=== PATIENT | female | born 1950 | race African-American/Black ===

== ENCOUNTER 2017-10-21 20:26 | Emergency (ER) | payer MEDICARE, OTHER ==
[2017-10-21] MEDS ORDERED: Ondansetron HCl/PF 4 MG/2 ML Vial ONE (21:07)
[2017-10-21] MEDS ORDERED: Sodium Chloride 0.9% 1,000 ML ONE (21:07)
[2017-10-21 21:22] LABS: Bilirubin Negative (Negative); Blood, Urine Negative (Negative); Clarity Clear (Clear); Glucose, Urine (Dipstick) Negative (Negative); Leukocyte Moderate (Negative); Nitrite Negative (Negative); Protein, Urine (Dipstick) 30 mg/dL (Neg-Trace); Urobilinogen 0.2 mg/dL (0.2-1.0); pH, Urine 6.5 (5.0-9.0)
[2017-10-21 21:26] LABS: ALT (SGPT) 7 U/L (8-55); AST (SGOT) 19 U/L (5-34); Albumin 2.9 g/dL (3.4-4.8); Alkaline Phosphatase 72 U/L (40-150); Anion Gap 15 mmol/L (10-20); BUN (Urea Nitrogen) 9 mg/dL (9.8-20.1); Bilirubin, Total 0.2 mg/dL (0.2-1.2); Calc. Creatinine Clearance 0 mL/min (70-130); Calcium 8.6 mg/dL (7.8-10.44); Carbon Dioxide 25 mmol/L (23-31); Chloride 96 mmol/L (98-107); Estimated GFR-MDRD 79; Globulin 4.2 g/dL (2.4-3.5); Glucose 104 mg/dL (80-115); Potassium 3.4 mmol/L (3.5-5.1); Protein, Total 7.1 g/dL (6.0-8.3); Sodium 133 mmol/L (136-145)
[2017-10-21 21:27] LABS: Magnesium 1.9 mg/dL (1.6-2.6)
[2017-10-21 21:28] LABS: CKMB 0.5 ng/mL (0-6.6); Troponin I Less than 0.010 ng/mL (< 0.028)
[2017-10-21 21:38] LABS: Band 6 % (5-11); Hemoglobin 3.8 g/dL (12.0-16.0); Hypochromia MARKED = >30 cells (100X) (0-5/hpf); Lymphocytes 43 % (21-51); MDiff Complete? YES; Mean Corpuscular HGB CONC 26.3 g/dL (32.0-36.0); Mean Corpuscular Hemoglobin 14.1 pg (27.0-31.0); Mean Corpuscular Volume 53.7 fl (81.0-99.0); Microcytosis MARKED = >30 cells (100X) (0-5/hpf); Monocytes 2 % (0-10); Neutrophil 49 % (42-75); PLT Morphology Comment Appears Adequate; Platelet Count 461 thou/uL (130-400); Poikilocytosis SLIGHT = 6-15 cells (100X) (0-5/hpf); RBC Distribution Width 14.8 % (11.5-14.5); Red Blood Cell (RBC) Count 2.69 mill/uL (4.20-5.40); White Blood Cell (WBC) Count 15.4 thou/uL (4.8-10.8)
[2017-10-21 21:40] LABS: Bacteria/HPF None Seen HPF (None Seen); RBC/HPF None Seen HPF (0-3); Squamous Epithelial 0-3 HPF (0-3)
--- NOTE | 2017-10-21 21:48 | RAD ---
AP VIEW OF THE CHEST: INDICATIONS: Nausea, weakness, and fever with intermittent abdominal pains. COMPARISON: None. IMPRESSION: No acute abnormality. COMMENTS: No comparisons are available. There are vascular calcifications involving the aortic arch. The lung s are clear. No pleural effusion or pneumothorax is evident. No acute osseous abnormality is eviden t. POS: [facility]
--- NOTE | 2017-10-21 22:24 | CT ---
CT OF THE BRAIN WITHOUT CONTRAST: INDICATIONS: Nausea, weakness, fever, and intermittent abdominal pain with a history of a fall. FINDINGS: No acute infarct, hemorrhage, or hydrocephalus is present. The septum pellucidum and third ventricle are midline. 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 The skull and extracran ial soft tissues appear within normal limits. IMPRESSION: No acute intracranial abnormality. POS: [facility]
[2017-10-21] MEDS ORDERED: Nitrofurantoin Macrocrystal 50 MG CAP ONE (23:12)
== END 2017-10-22 00:20 | disposition short-term general hospital (02) ==
LOC: EEVIPCON 20:26 → NAV ERS 20:26
DX: D50.9 Iron deficiency anemia, unspecified (principal); N39.0 Urinary tract infection, site not specified; I10 Essential (primary) hypertension; F17.210 Nicotine dependence, cigarettes, uncomplicated
CPT/HCPCS: 70450; 71010; 80053; 81003; 81015; 82274; 82553; 83690; 83735; 83880; 84100; 84484; 85025; 93005; 96361; 96374; J2405; J7050

== ENCOUNTER 2017-12-20 14:17 | Emergency (ER) | payer MEDICARE, MEDICAID ==
[2017-12-20] MEDS ORDERED: Sodium Chloride 0.9% 1,000 ML ONE (14:39)
--- NOTE | 2017-12-20 15:20 | RAD ---
LEFT FOOT 3 VIEWS: Date: 12/20/17 HISTORY: Pain. Numbness. FINDINGS: There is mild degenerative change throughout the left foot. No fracture. No cortical irregularity. No periosteal reaction. No evidence of Lisfranc injury. There is midfoot soft tissue swelling. IMPRESSION: Midfoot soft tissue swelling. POS: [facility]
[2017-12-20 15:30] LABS: ALT (SGPT) 8 U/L (8-55); AST (SGOT) 25 U/L (5-34); Albumin 2.3 g/dL (3.4-4.8); Alkaline Phosphatase 50 U/L (40-150); Anion Gap 16 mmol/L (10-20); BUN (Urea Nitrogen) 47 mg/dL (9.8-20.1); Bilirubin, Total 0.3 mg/dL (0.2-1.2); Calc. Creatinine Clearance 0 mL/min (70-130); Calcium 7.5 mg/dL (7.8-10.44); Carbon Dioxide 33 mmol/L (23-31); Chloride 83 mmol/L (98-107); Estimated GFR-MDRD 36; Globulin 3.4 g/dL (2.4-3.5); Glucose 124 mg/dL (80-115); Protein, Total 5.7 g/dL (6.0-8.3); Sodium 129 mmol/L (136-145)
[2017-12-20 15:31] LABS: CKMB 1.8 ng/mL (0-6.6); Troponin I Less than 0.010 ng/mL (< 0.028)
[2017-12-20 15:37] LABS: Potassium 2.9 mmol/L (3.5-5.1)
[2017-12-20] MEDS ORDERED: Potassium Chloride 20 MEQ TAB ONE (15:41)
[2017-12-20 15:43] LABS: Anisocytosis MARKED = >30 cells (100X) (0-5/hpf); Hemoglobin 3.3 g/dL (12.0-16.0); Hypochromia MARKED = >30 cells (100X) (0-5/hpf); Lymphocytes 10 % (21-51); MDiff Complete? YES; Mean Corpuscular HGB CONC 29.2 g/dL (32.0-36.0); Mean Corpuscular Hemoglobin 21.1 pg (27.0-31.0); Mean Corpuscular Volume 72.3 fl (81.0-99.0); Mean Platelet Volume 5.5 fL (7.4-10.4); Microcytosis MARKED = >30 cells (100X) (0-5/hpf); Monocytes 2 % (0-10); Neutrophil 88 % (42-75); Nucleated RBC 1 % (0); Platelet Count 311 thou/uL (130-400); Red Blood Cell (RBC) Count 1.56 mill/uL (4.20-5.40); Tear Drops SLIGHT = 2-5 cells (100X) (0-1/hpf); White Blood Cell (WBC) Count 20.4 thou/uL (4.8-10.8)
== END 2017-12-20 16:28 | disposition short-term general hospital (02) ==
LOC: NAV ERS 14:17
DX: D64.9 Anemia, unspecified (principal); E87.6 Hypokalemia; I10 Essential (primary) hypertension; F17.220 Nicotine dependence, chewing tobacco, uncomplicated; Z79.899 Other long term (current) drug therapy
CPT/HCPCS: 80053; 82553; 83880; 84484; 85025; 86850; 86900; 86901; 93005; 96360; 96361; J7050